=== PATIENT | male | born 1985 | race Caucasian/White ===

== ENCOUNTER 2016-07-04 10:17 | Emergency (ER) | payer BC ==
[~2016-07-04] VITALS: Ht 175.3 cm; Wt 65.0 kg
[~2016-07-04 10:17] MED LIST: CIPR500T2 PO; DEXI30CA2 PO
[2016-07-04 10:19] VITALS: BP 146/90; PULSE 78; RESP 18; TEMP 98; O2SAT 95
[2016-07-04] MEDS ORDERED: LORA-392 PO (10:24)
[2016-07-04] MEDS ORDERED: PAXI20TA PO (10:24)
[2016-07-04 10:30] VITALS: BP 139/82; PULSE 84; RESP 16; O2SAT 96
--- NOTE | 2016-07-04 10:38 | PD ---
HPI . Depression and anxiety Chief Complaint: Psychiatric Symptoms Time Seen by Provider: 10:34 Travel History International Travel<30 days: No Contact w/Intl Traveler<30days: No Traveled to known affect area: No History of Present Illness HPI Patient presents with depression and anxiety. He is requesting to speak with someone from psychiatry. He denies suicidal ideation. He states he has had suicidal ideation in the past but not currently. PFSH Past Medical History Anxiety: Yes Depression: Yes Diminished Hearing: No Kidney Stones: Yes Tetanus Vaccination: > 5 Years Influenza Vaccination: No Past Surgical History Genitourinary Surgery: Yes (CIRCIMCISION) Social History Alcohol Use: Yes (X1 PER MONTH) Tobacco Use: Yes (1 PPD/STARTED AGE 19) Substance Use: No Allergies-Medications (Allergen,Severity, Reaction): Coded Allergies: Penicillin (Verified Allergy, Severe, VOMITING, 07/04/16) PT DENIES ALLERGY 07/14/12 Reported Meds & Prescriptions Reported Meds & Active Scripts Active Reported Ativan (Lorazepam) 0.5 Mg Tab 0.5 Mg PO Q4H PRN Paxil (Paroxetine HCl) 20 Mg Tab 20 Mg PO DAILY Review of Systems Except as stated in HPI: all other systems reviewed are Neg Psychiatric: Positive: Anxiety, Depression, Mood Disorder, No: Suicidal Ideations Physical Exam Narrative GENERAL: Awake and alert and in no acute distress. He is wearing sunglasses. SKIN: Warm and dry. CARDIOVASCULAR: Regular rate and rhythm. RESPIRATORY: No accessory muscle use. MUSCULOSKELETAL: No obvious deformities. No edema. NEUROLOGICAL: Awake and alert. No obvious cranial nerve deficits. Motor grossly within normal limits. Normal speech. PSYCHIATRIC: Sad affect; insight and judgment normal. Data Data Last Documented VS Vital Signs Date Time Temp Pulse Resp B/P Pulse Ox O2 Delivery O2 Flow Rate FiO2 07/04/16 10:30 84 16 139/82 96 Room Air 07/04/16 10:19 98.0 Orders Complete Blood Count With Diff (07/04/16 10:34) Comprehensive Metabolic Panel (07/04/16 10:34) Psych Screen (07/04/16 10:34) Drug Screen, Random Urine (07/04/16 10:34) Alcohol (Ethanol) (07/04/16 10:34) Labs Laboratory Tests Test 07/04/16 10:40 White Blood Count 7.8 TH/MM3 Red Blood Count 5.35 MIL/MM3 Hemoglobin 16.8 GM/DL Hematocrit 49.0 % Mean Corpuscular Volume 91.5 FL Mean Corpuscular Hemoglobin 31.4 PG Mean Corpuscular Hemoglobin 34.3 % Concent Red Cell Distribution Width 13.4 % Platelet Count 264 TH/MM3 Mean Platelet Volume 7.8 FL Neutrophils (%) (Auto) 62.8 % Lymphocytes (%) (Auto) 23.5 % Monocytes (%) (Auto) 10.9 % Eosinophils (%) (Auto) 2.3 % Basophils (%) (Auto) 0.5 % Neutrophils # (Auto) 4.9 TH/MM3 Lymphocytes # (Auto) 1.8 TH/MM3 Monocytes # (Auto) 0.8 TH/MM3 Eosinophils # (Auto) 0.2 TH/MM3 Basophils # (Auto) 0.0 TH/MM3 CBC Comment DIFF FINAL Differential Comment Sodium Level 141 MEQ/L Potassium Level 4.0 MEQ/L Chloride Level 103 MEQ/L Carbon Dioxide Level 28.8 MEQ/L Anion Gap 9 MEQ/L Blood Urea Nitrogen 9 MG/DL Creatinine 0.80 MG/DL Estimat Glomerular Filtration 114 ML/MIN Rate Random Glucose 93 MG/DL Calcium Level 9.0 MG/DL Total Bilirubin 0.9 MG/DL Aspartate Amino Transf 11 U/L (AST/SGOT) Alanine Aminotransferase 20 U/L (ALT/SGPT) Alkaline Phosphatase 63 U/L Total Protein 7.3 GM/DL Albumin 4.4 GM/DL Urine Opiates Screen NEG Urine Barbiturates Screen NEG Urine Amphetamines Screen NEG Urine Benzodiazepines Screen NEG Urine Cocaine Screen NEG Urine Cannabinoids Screen NEG Ethyl Alcohol Level LESS THAN 3 MG/DL MDM Medical Decision Making Medical Screen Exam Complete: Yes Emergency Medical Condition: Yes Differential Diagnosis Differential diagnosis of depression includes but is not limited to episodic depression, major depression, bipolar disorder, PTSD Narrative Course Patient presents requesting to see someone from psychiatry. Medical screening exam has been done. CBC & BMP Diagram 07/04/16 10:40 Drug screen and alcohol level were negative. The patient was here with a young child. The young child is very restless. The patient has started to sign out AMA because of the child. 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
[2016-07-04 11:03] LABS: AUTOMATED NEUTROPHIL # 4.9 TH/MM3 (1.8-7.7); BASOPHIL % 0.5 % (0.0-2.0); EOSINOPHIL # 0.2 TH/MM3 (0-0.4); EOSINOPHIL % 2.3 % (0.0-4.0); HEMO FLAGS DIFF FINAL; LYMPH % 23.5 % (9.0-44.0); LYMPHOCYTE # 1.8 TH/MM3 (1.0-4.8); MEAN CELL VOLUME 91.5 FL (80.0-100.0); MEAN CORPUSCULAR HEMOGLOBIN 31.4 PG (27.0-34.0); MEAN CORPUSCULAR HGB CONC 34.3 % (32.0-36.0); MONO % 10.9 % (0.0-8.0); NEUT % 62.8 % (16.0-70.0); PLATELET COUNT 264 TH/MM3 (150-450); RED BLOOD COUNT 5.35 MIL/MM3 (4.50-5.90); RED CELL DISTRIBUTION WIDTH 13.4 % (11.6-17.2); WHITE BLOOD COUNT 7.8 TH/MM3 (4.0-11.0)
[2016-07-04 11:10] LABS: AMPHETAMINE, URINE NEG (NEG); BARBITURATES, URINE NEG (NEG); COCAINE, URINE NEG (NEG)
[2016-07-04 11:22] LABS: ALKALINE PHOSPHATASE 63 U/L (45-117); TOTAL BILIRUBIN ADULT 0.9 MG/DL (0.2-1.0)
[2016-07-04 11:23] LABS: ALT (GPT) 20 U/L (12-78); ANION GAP 9 MEQ/L (5-15); AST (GOT) 11 U/L (15-37); BICARBONATE 28.8 MEQ/L (21.0-32.0); BLOOD UREA NITROGEN 9 MG/DL (7-18); CHLORIDE 103 MEQ/L (98-107); GLOMERULAR FILTRATION RATE 114 ML/MIN (>89); SODIUM (NA) 141 MEQ/L (136-145)
== END 2016-07-04 12:40 | disposition left against medical advice (07) ==
LOC: NEPA 10:17
DX: F41.8 Other specified anxiety disorders (principal); F17.210 Nicotine dependence, cigarettes, uncomplicated
CPT/HCPCS: 80053; 80307; 85025; 99284